=== PATIENT | female | born 1985 | race American Indian/Alaskan Native ===

== ENCOUNTER 2017-10-26 18:48 | Emergency (ER) | payer BC ==
--- NOTE | 2017-10-26 19:51 | ED PDOC ---
Arrival/HPI - General Chief Complaint: Female Genitourinary Time Seen by Provider: 10/26/17 19:17 Historian: Patient, Partner - History of Present Illness Narrative History of Present Illness (Text): you were treated in the ED today for having last menstrual period 09/13/17, having some pelvic pressure, urinary discomfort otherwise without any nausea/ vomiting/headache/dizziness/difficulty breathing/chest pain/abdomen pain/ numbness/tingling/loss of limb function/vaginal bleeding or discharge. Addendum created by Zhanna Gibbs MD on 10/26/2017 10:34 PM Eastern Time ([place] & [place]) Findings were discussed with Vinh Leigh at 10/26/2017 10:34 PM EST. Initial Report created on 10/26/2017 10:04 PM Eastern Time ([place] & [place]) [place] , Transvaginal Dictated and Authenticated by: Zhanna Gibbs MD 10/26/2017 10:04 PM Eastern Time ([place] & [place]) CLINICAL HISTORY: 32 years old, female; Pain; complicated by abdominal or pelvic pain; Left lower quadrant; First trimester; Gestational age or lmp: 09/11/2017; ; Patient HX: Er pregency test is positive no y. Sac no g sac no pole seen; Additional info: 32f, lmp 09/13/17, pelvic pain TECHNIQUE: Real-time transvaginal obstetrical ultrasound of the maternal pelvis and a first trimester with image documentation. Transvaginal imaging was used for better evaluation of the fetus and adnexa. COMPARISON: No relevant prior studies available. FINDINGS: No intrauterine noted. This may be related to early versus missed versus ectopic cannot be excluded. Serial beta-hCG and followup ultrasound is recommended. Uterus/cervix: Near the cervix there is increased vascularity noted. Ovaries: Complex septated cyst in the right ovary measuring 2.8 x 2.8 cm. Free fluid: No free fluid. IMPRESSION: 1. No intrauterine noted. This may be related to early versus missed versus ectopic cannot be excluded. Serial beta-hCG and followup ultrasound is recommended. 2. Complex septated cyst in the right ovary measuring 2.8 x 2.8 cm. Near the cervix there is increased vascularity noted. Time/Duration: 24 hours Symptom Onset: Gradual Symptom Course: Intermittent Quality: Pressure Severity Level: 1 Activities at Onset: Rest Context: Sitting Past Medical History - Provider Review Nursing Documentation Reviewed: Yes - Travel History Have you recently traveled outside [place] w/in the past 3 mons?: No - Psychiatric Hx Psychophysiologic Disorder: No Hx Substance Use: No Family/Social History - Physician Review Nursing Documentation Reviewed: Yes Family/Social History: No Known Family HX Smoking Status: Never Smoked Hx Alcohol Use: Yes Frequency of alcohol use: Socially Hx Substance Use: No Allergies/Home Meds Allergies/Adverse Reactions: Allergies No Known Allergies Allergy (Verified 10/26/17 18:49) Home Medications: Home Meds Medication Instructions Recorded Confirmed No Known Home Med 10/26/17 10/26/17 Review of Systems - Review of Systems Constitutional: Normal Eyes: Normal ENT: Normal Respiratory: Normal Cardiovascular: Normal Gastrointestinal: Normal Genitourinary Female: Other (pelvic pressure) Musculoskeletal: Normal Skin: Normal Neurological: Normal Endocrine: Normal Hemo/Lymphatic: Normal Physical Exam Vital Signs Reviewed: Yes Vital Signs Temp Pulse Resp BP Pulse Ox 10/26/17 21:00 98.2 F 60 16 128/71 100 10/26/17 19:11 98.1 F 59 L 18 135/71 100 10/26/17 18:52 97.9 F 59 L 16 124/81 100 Temperature: Afebrile Blood Pressure: Hypertensive Pulse: Regular Respiratory Rate: Normal Appearance: Positive for: Well-Appearing, Non-Toxic, Comfortable Pain Distress: None Mental Status: Positive for: Alert and Oriented X 3 - Systems Exam Head: Present: Atraumatic, Normocephalic Pupils: Present: PERRL Extroacular Muscles: Present: EOMI Conjunctiva: Present: Normal Ears: Present: Normal Mouth: Present: Moist Mucous Membranes Pharnyx: Present: Normal Nose (External): Present: Atraumatic Nose (Internal): Present: Normal Inspection Neck: Present: Normal Range of Motion Respiratory/Chest: Present: Clear to Auscultation, Good Air Exchange, Respiratory Distress Cardiovascular: Present: Regular Rate and Rhythm Abdomen: No: Tenderness, Distention, Normal Bowel Sounds, Peritoneal Signs, Rebound, Guarding, McBurney's Point Tender, Rovsing's Sign Present, Hernias, Feeding Tubes, Ostomy Tubes, Mass/Organomegaly, Scars, Other Back: Present: Normal Inspection Upper Extremity: Present: Normal Inspection Lower Extremity: Present: Normal Inspection Neurological: Present: GCS=15, CN II-XII Intact, Speech Normal, Motor Func Grossly Intact Skin: Present: Warm, Normal Color Psychiatric: Present: Alert, Oriented x 3, Normal Insight, Normal Concentration Medical Decision Making ED Course and Treatment: you were treated in the ED today for having last menstrual period 09/13/17, having some pelvic pressure, urinary discomfort otherwise without any nausea/ vomiting/headache/dizziness/difficulty breathing/chest pain/abdomen pain/ numbness/tingling/loss of limb function/vaginal bleeding or discharge. You refused sexual disease testing or treatment. You were otherwise breathing easily , pink moist lips, smiling and talking with your fiance, good strength/sensation , alert/oriented, walking easily, clear lungs, no abdomen tenderness, you refused pelvic exam and cautioned for missed diagnosis/complications but you stated will do at your primary care/obstetrics doctors office, no fever temp 97.9, stable heart rate 59, stable breathing rate 16, excellent oxygen level 100 % room air, elevated blood pressure 124/81 which we recommend repeat in 2-3 days primary care office to determine further treatment, you have blood tests no infection count 8, stable blood level hemoglobin 12/platelets 301, stable chemistry, urine test no acute sign of infection, urine test positive , blood test low/early 88.22, radiology ultrasound no intra- uterine noted at this time but per the radiologist discussion with good blood flow to both ovaries, tylenol, observation done in the ED with improvement, counselled to have bed rest till first clinic visit and thus discharged home with fiance. 1. Recommend follow-up primary care 1-2 days to review symptoms, referral to obstetrics/gynecology clinic to review symptoms to ensure further treatment, repeat tests to ensure no complications, review ultrasound findings of increased vascularity cervix/right ovary cyst to ensure no complications/cancer development. 2. If any worsening pain, fever, chills, nausea, vomiting, difficulty breathing, numbness, loss of limb function , pain with urination or any medical condition then return to the ED. TECHNIQUE: Real-time transvaginal obstetrical ultrasound of the maternal pelvis and a first trimester with image documentation. Transvaginal imaging was used for better evaluation of the fetus and adnexa. COMPARISON: No relevant prior studies available. FINDINGS: No intrauterine noted. This may be related to early versus missed versus ectopic cannot be excluded. Serial beta-hCG and followup ultrasound is recommended. Uterus/cervix: Near the cervix there is increased vascularity noted. Ovaries: Complex septated cyst in the right ovary measuring 2.8 x 2.8 cm. Free fluid: No free fluid. IMPRESSION: 1. No intrauterine noted. This may be related to early versus missed versus ectopic cannot be excluded. Serial beta-hCG and followup ultrasound is recommended. 2. Complex septated cyst in the right ovary measuring 2.8 x 2.8 cm. Near the cervix there is increased vascularity noted. Reassessment Condition: Improved - Lab Interpretations Lab Results: 10/26/17 20:13 10/26/17 20:13 Lab Results 10/26/17 20:13: Beta HCG, Quant 88.22 H 10/26/17 20:13: Sodium 140, Potassium 3.7, Chloride 102, Carbon Dioxide 25, Anion Gap 16, BUN 10, Creatinine 0.8, Est GFR ( Amer) > 60, Est GFR (Non- Af Amer) > 60, Random Glucose 110, Calcium 9.8, Total Bilirubin 0.3, AST 23, ALT 24, Alkaline Phosphatase 103, Total Protein 8.6 H, Albumin 4.4, Globulin 4.2 , Albumin/Globulin Ratio 1.0 L 10/26/17 20:13: PT 11.8, INR 1.03, APTT 30.8 10/26/17 20:13: WBC 8.0, RBC 5.23, Hgb 12.6, Hct 39.9, MCV 76.3 L, MCH 24.1 L, MCHC 31.6, RDW 14.9 H, Plt Count 301, MPV 10.6, Gran % 61.7, Lymph % (Auto) 29.6 , [place] % (Auto) 8.2 H, Eos % (Auto) 0.4 L, Baso % (Auto) 0.1, Gran # 4.95, Lymph # (Auto) 2.4, [place] # (Auto) 0.7 H, Eos # (Auto) 0.0, Baso # (Auto) 0.01 10/26/17 19:25: Urine Color Light yellow, Urine Appearance Sl cloudy, Urine pH 6.0, Ur Specific [place] 1.025, Urine Protein Negative, Urine Glucose (UA) Negative, Urine Ketones Negative, Urine Blood Negative, Urine Nitrate Negative, Urine Bilirubin Negative, Urine Urobilinogen 1.0 H, Ur Leukocyte Esterase Negative, Urine HCG, Qual Positive I have reviewed the lab results: Yes - RAD Interpretation Radiology Orders: 10/26/17 19:45 OB TRANSVAGINAL [US] Stat Theatre Manager: Radiologist (us pelvis mdm) - Medication Orders Current Medication Orders: Discontinued Medications Acetaminophen (Tylenol 325mg Tab) 650 mg PO STAT STA Stop: 10/26/17 19:48 Last Admin: 10/26/17 20:12 Dose: 650 mg MAR Pain/Vitals Document 10/26/17 20:12 [facility] (Rec: 10/26/17 20:12 [facility] [place]-[id number]) Pain Reassessment Is This A Pain ReAssessment? No Disposition/Present on Arrival - Present on Arrival Any Indicators Present on Arrival: No History of DVT/PE: No History of Uncontrolled Diabetes: No Urinary Catheter: No History of Decub. Ulcer: No History Surgical Site Infection Following: None - Disposition Have Diagnosis and Disposition been Completed?: Yes Diagnosis: Disposition: HOME/ ROUTINE Disposition Time: 22:54 Patient Plan: Discharge Condition: IMPROVED Discharge Instructions (ExitCare): - The First Month Additional Instructions: you were treated in the ED today for having last menstrual period 09/13/17, having some pelvic pressure, urinary discomfort otherwise without any nausea/ vomiting/headache/dizziness/difficulty breathing/chest pain/abdomen pain/ numbness/tingling/loss of limb function/vaginal bleeding or discharge. You refused sexual disease testing or treatment. You were otherwise breathing easily , pink moist lips, smiling and talking with your fiance, good strength/sensation , alert/oriented, walking easily, clear lungs, no abdomen tenderness, you refused pelvic exam and cautioned for missed diagnosis/complications but you stated will do at your primary care/obstetrics doctors office, no fever temp 97.9, stable heart rate 59, stable breathing rate 16, excellent oxygen level 100 % room air, elevated blood pressure 124/81 which we recommend repeat in 2-3 days primary care office to determine further treatment, you have blood tests no infection count 8, stable blood level hemoglobin 12/platelets 301, stable chemistry, urine test no acute sign of infection, urine test positive , blood test low/early 88.22, radiology ultrasound no intra- uterine noted at this time but per the radiologist discussion with good blood flow to both ovaries, tylenol, observation done in the ED with improvement, counselled to have bed rest till first clinic visit and thus discharged home with fiance. 1. Recommend follow-up primary care 1-2 days to review symptoms, referral to obstetrics/gynecology clinic to review symptoms to ensure further treatment, repeat tests to ensure no complications, review ultrasound findings of increased vascularity cervix/right ovary cyst to ensure no complications/cancer development. 2. If any worsening pain, fever, chills, nausea, vomiting, difficulty breathing, numbness, loss of limb function , pain with urination or any medical condition then return to the ED. Referrals: PCP,NO [Primary Care Provider] - Follow up with primary Forms: [employer] (Turkmen)
[2017-10-26 20:26] LABS: URINE BILIRUBIN NEGATIVE (NEGATIVE); URINE BLOOD NEGATIVE (NEGATIVE); URINE GLUCOSE (UA) NEGATIVE (NEGATIVE); URINE LEUKOCYTE ESTERASE NEGATIVE Leu/uL (NEGATIVE); URINE NITRATE NEGATIVE (NEGATIVE); URINE PROTEIN NEGATIVE mg/dL (<30 mg/dL)
[2017-10-26 20:28] LABS: URINE APPEARANCE SL CLOUDY (CLEAR); URINE COLOR LIGHT YELLOW (YELLOW)
[2017-10-26 20:28] LABS: BASO # 0.01 K/mm3 (0.0-2.0); BASO % 0.1 % (0.0-3.0); EOS % 0.4 % (1.5-5.0); GRAN # 4.95 (1.4-6.5); GRAN % 61.7 % (50.0-68.0); HEMOGLOBIN 12.6 g/dL (12.0-16.0); LYMPH # 2.4 (1.2-3.4); LYMPH % 29.6 % (22.0-35.0); MEAN CELL VOLUME 76.3 fl (80.0-105.0); MEAN CORPUSCULAR HEMOGLOBIN 24.1 pg (25.0-35.0); MEAN CORPUSCULAR HGB CONC 31.6 g/dl (31.0-37.0); MEAN PLATELET VOLUME 10.6 fl (7.0-11.0); MONO # 0.7 (0.1-0.6); MONO % 8.2 % (1.0-6.0); RBC 5.23 10^6/uL (3.5-6.1); RED CELL DISTRIBUTION WIDTH 14.9 % (11.5-14.5)
[2017-10-26 20:34] LABS: HCG,QUALITATIVE URINE POSITIVE (NEGATIVE)
[2017-10-26 20:43] LABS: ALBUMIN 4.4 g/dL (3.0-4.8); ALT/SGPT 24 U/L (7-56); AST/SGOT 23 U/L (14-36); BLOOD UREA NITROGEN 10 mg/dL (7-21); CALCIUM 9.8 mg/dL (8.4-10.5); GFR AFRICAN-AMERICAN > 60; GFR NON-AFRICAN AMERICAN > 60
[2017-10-26 20:58] LABS: INR 1.03 (0.93-1.08); PARTIAL THROMBOPLASTIN TIME 30.8 Seconds (25.1-36.5); PROTHROMBIN TIME 11.8 SECONDS (9.4-12.5)
[2017-10-26 21:38] VITALS: RESP 16; TEMP 98.2
[2017-10-26 23:06] VITALS: BP 132/78; PULSE 78; O2SAT 99
--- NOTE | 2017-10-27 13:34 | US ---
HISTORY: 32F, LMP 09/13/17, pelvic pain COMPARISON: None available. TECHNIQUE: Transabdominal and transvaginal FINDINGS: UTERUS: Measures 7.7 x 3.7 x 4.1 cm. Normal in size and appearance. No fibroid or other mass lesion seen. ENDOMETRIUM: Measures 2 mm in diameter. Unremarkable. CERVIX: No cervical mass identified. Along left lateral aspect of the cervix, there is demonstration of increased vascularity with Doppler interrogation. However, no abnormally dilated vessels are demonstrated. . RIGHT OVARY: Measures 3.4 x 1.9 x 3.2 cm. No solid mass. Normal flow. Septated cyst, 2.8 x 1.7 x 2.8 cm. LEFT OVARY: Measures 3.5 x 1.5 x 1.4 cm. No solid mass. Normal flow. FREE FLUID: No significant free fluid noted. OTHER FINDINGS: None. IMPRESSION: No intrauterine . In the appropriate clinical setting, cannot exclude ectopic gestation. Further clinical and laboratory evaluation is suggested. Increased vascularity seen along left lateral aspect of cervix of uncertain significance. No abnormally distended vessels are demonstrated.
== END 2017-10-26 23:05 | disposition home or self-care (01) ==
LOC: MERGE 18:48 → ED 18:48
DX: O26.891 Other specified pregnancy related conditions, first trimester (principal); R10.2 Pelvic and perineal pain